=== PATIENT | female | born 1990 | race American Indian/Alaskan Native ===

== ENCOUNTER 2017-08-29 09:43 | Emergency (ER) | payer SELFPAY ==
--- NOTE | 2017-08-29 10:31 | XRay Report ---
RIGHT FOOT, 3 views: History: Right foot pain after fall. The bony architecture is intact. Bony alignment is normal. No soft tissue abnormalities are seen. The joint spaces appear preserved. IMPRESSION: Normal right foot.
[2017-08-29] MEDS: FLEXERIL PO ONE (12:29)
[2017-08-29] MEDS: NORCO 5/325 PO ONE (12:29)
[2017-08-29] MEDS: TORADOL IM ONE (12:30)
[2017-08-29 12:50] VITALS: BP 106/68
--- NOTE | 2017-08-29 12:53 | Emergency Department Report ---
ED Fall HPI - General Chief Complaint: Extremity Injury, Lower Stated Complaint: FALL, RIGHT FOOT INJURY Source: patient Mode of arrival: Ambulatory Limitations: No Limitations - History of Present Illness Initial Comments: 27 year old female presents to ED with right foot pain after mechanical fall. patient states she was walking down stairs and missed last step. patient denies syncope, LOC, trauma to head, AMS, confusion. patient is stable, neurologically intact and in no acute distress. patient states LMP started yesterday. MD Complaint: fall -: Sudden Fall From: down stairs (#) When Fall Occurred: just prior to arrival Prolonged Down Time?: no Symptoms Prior to Fall: none Location - Extremities: Right: Foot Severity: mild Quality: aching Context: tripped/slipped Associated Symptoms: unable to walk. denies: headache, neck pain, numbness, weakness, chest paint, shortness of breath, abdominal pain, hematuria, lightheaded, vertigo, confusion - Related Data Previous Rx's Medication Instructions Recorded Last Taken Type Ibuprofen [Motrin] 600 mg PO Q8H PRN #60 tablet 10/02/15 Unknown Rx Mupirocin [Bactroban 2%] 1 applic TP TID #1 tube 10/02/15 Unknown Rx traMADol [Ultram] 50 mg PO Q6HR PRN #14 tablet 10/02/15 Unknown Rx Meloxicam 7.5 mg PO QAM #5 tablet 08/29/17 Unknown Rx methOCARBAMOL [Robaxin TAB] 500 mg PO TID #15 tab 08/29/17 Unknown Rx Allergies Allergy/AdvReac Type Severity Reaction Status Date / Time No Known Allergies Allergy Unverified 10/02/15 02:05 ED Review of Systems ROS: Stated complaint: FALL, RIGHT FOOT INJURY Other details as noted in HPI Constitutional: denies: chills, fever Eyes: denies: eye pain, eye discharge, vision change ENT: denies: ear pain, throat pain Respiratory: denies: cough, shortness of breath, wheezing Cardiovascular: denies: chest pain, palpitations Endocrine: no symptoms reported Gastrointestinal: denies: abdominal pain, nausea, diarrhea Genitourinary: denies: urgency, dysuria, discharge Musculoskeletal: joint swelling, arthralgia. denies: back pain Skin: denies: rash, lesions Neurological: denies: headache, weakness, numbness, paresthesias, confusion, abnormal gait, vertigo Psychiatric: denies: anxiety, depression Hematological/Lymphatic: denies: easy bleeding, easy bruising ED Past Medical Hx - Past Medical History Previous Medical History?: Yes Hx Asthma: Yes - Surgical History Past Surgical History?: No - Social History Smoking Status: Never Smoker Substance Use Type: None - Medications Home Medications: Home Medications Medication Instructions Recorded Confirmed Last Taken Type Ibuprofen [Motrin] 600 mg PO Q8H PRN #60 tablet 10/02/15 Unknown Rx Mupirocin [Bactroban 2%] 1 applic TP TID #1 tube 10/02/15 Unknown Rx traMADol [Ultram] 50 mg PO Q6HR PRN #14 tablet 10/02/15 Unknown Rx Meloxicam 7.5 mg PO QAM #5 tablet 08/29/17 Unknown Rx methOCARBAMOL [Robaxin TAB] 500 mg PO TID #15 tab 08/29/17 Unknown Rx ED Physical Exam - General Limitations: No Limitations General appearance: alert, in no apparent distress - Head Head exam: Present: atraumatic, normocephalic - Eye Eye exam: Present: normal appearance - ENT ENT exam: Present: mucous membranes moist - Neck Neck exam: Present: normal inspection, full ROM. Absent: tenderness - Respiratory Respiratory exam: Present: normal lung sounds bilaterally. Absent: respiratory distress, chest wall tenderness - Cardiovascular Cardiovascular Exam: Present: regular rate, normal rhythm. Absent: systolic murmur, diastolic murmur, rubs, gallop - GI/Abdominal GI/Abdominal exam: Present: soft, normal bowel sounds. Absent: distended, tenderness - Extremities Exam Extremities exam: Present: normal inspection, full ROM (patient has Full ROM to right ankle and right digits on foot), tenderness, normal capillary refill, joint swelling (mild swelling to lateral portion of right foot) - Back Exam Back exam: Present: normal inspection, full ROM - Neurological Exam Neurological exam: Present: alert, oriented X3, other (patient states she is unable to ambulate due to pain in foot) - Psychiatric Psychiatric exam: Present: normal affect, normal mood - Skin Skin exam: Present: warm, dry, intact, normal color. Absent: rash ED Course Vital Signs 08/29/17 08/29/17 09:50 12:48 Temperature 99.5 F 98.1 F Pulse Rate 104 H 80 Respiratory 16 16 Rate Blood Pressure 111/71 Blood Pressure 106/68 [Right] O2 Sat by Pulse 99 100 Oximetry ED Medical Decision Making - Radiology Data Radiology results: report reviewed XR right foot normal right foot. - Medical Decision Making 27 year old female presents to ED with right foot pain after mechanical fall. patient has negative imaging study for acute findings per radiology. patient is stable, neurologically intact and in no acute distress. patient will have foot wrapped in inga bandage and given crutches for ambulation assistance. Critical care attestation.: If time is entered above; I have spent that time in minutes in the direct care of this critically ill patient, excluding procedure time. ED Disposition Clinical Impression: Right foot strain Qualifiers: Encounter type: initial encounter Qualified Code(s): S96.911A - Strain of unspecified muscle and tendon at ankle and foot level, right foot, initial encounter Disposition: - TO HOME OR SELFCARE Is pt being admited?: No Does the pt Need Aspirin: No Condition: Stable Instructions: Foot Sprain (ED) Prescriptions: Meloxicam 7.5 mg PO QAM #5 tablet methOCARBAMOL [Robaxin TAB] 500 mg PO TID #15 tab Referrals: PRIMARY CARE, [Primary Care Provider] - 2-3 Days Forms: Work/School Release Form(ED)
== END 2017-08-29 13:07 | disposition home or self-care (01) ==
LOC: ED 09:43
DX: S96.911A Strain of unspecified muscle and tendon at ankle and foot level, right foot, initial encounter (principal); J45.909 Unspecified asthma, uncomplicated; W10.9XXA Fall (on) (from) unspecified stairs and steps, initial encounter; Y93.9 Activity, unspecified; Y99.9 Unspecified external cause status; Y92.89 Other specified places as the place of occurrence of the external cause
CPT/HCPCS: 73630; 96372; 99284; J1885